=== PATIENT | male | born 1940 | race Caucasian/White ===

== ENCOUNTER 2017-08-02 17:57 | Inpatient (IN) | payer OTHER ==
[~2017-08-02] VITALS: Ht 167.6 cm; Wt 48.8 kg
[2017-08-02] MEDS ORDERED: ATORVASTATIN CA40 M1 PO (19:51)
[2017-08-02] MEDS ORDERED: PHOSLO667 MG PO (19:51)
[2017-08-02] MEDS ORDERED: NOR5 PO (19:51)
[2017-08-02] MEDS ORDERED: ASPIR 8181 MG PO (19:51)
[2017-08-02] MEDS ORDERED: LEVOXYL0.075 MG PO (19:52)
[2017-08-02] MEDS ORDERED: CLOPIDOGREL75 M1 PO (19:52)
[2017-08-02] MEDS ORDERED: NEU300 PO (19:52)
[2017-08-02] MEDS ORDERED: LOSARTAN POTASS25 M1 PO (19:53)
[2017-08-02] MEDS ORDERED: METOPROLOL TART25 M1 PO (19:54)
[2017-08-02 20:27] LABS: BASOPHIL % 0.9 % (0-2); PLATELET COUNT 297 x10^3mcL (130-400)
[2017-08-02 20:28] LABS: RED CELL DISTRIBUTION WIDTH 22.4 % (11.5-14.5)
[2017-08-02 20:34] LABS: ALKALINE PHOSPHATASE 94 U/L (46-116); ALT/SGPT 40 U/L (16-63); AST/SGOT 35 U/L (15-37); BILIRUBIN TOTAL 0.3 mg/dL (0.20-1.00); CALCIUM 9.1 mg/dL (8.5-10.1); CARBON DIOXIDE 27.6 mmol/L (21-32); CHLORIDE SERUM 100 mmol/L (98-107); CHOLESTEROL 165 mg/dL (<200); CREATININE SERUM 3.7 mg/dL (0.7-1.3); GLUCOSE SERUM 103 mg/dL (74-106); PHOSPHOROUS 5.6 mg/dL (2.5-4.9); SODIUM SERUM 140 mmol/L (136-145); URIC ACID 2.9 mg/dL (3.5-7.2)
[2017-08-02 20:35] LABS: ALBUMIN 2.9 g/dL (3.4-5.0); HDL CHOLESTEROL 96 mg/dL (40-60); TOTAL PROTEIN, SERUM 8.3 g/dL (6.4-8.2)
[2017-08-02 20:37] LABS: POTASSIUM SERUM 5.6 mmol/L (3.5-5.1)
[2017-08-02 21:06] LABS: rbc morphology (normal/abnorm) ABNORMAL (NORMAL)
[2017-08-02 21:07] LABS: acanthocyte (spur cell) 1+; ovalocyte/elliptocyte 1+
[2017-08-02] MEDS ORDERED: REM15 PO (21:24)
[2017-08-02 21:29] VITALS: BP 127/73
[2017-08-02 22:14] LABS: RED BLOOD CELLS 4.04 M/mm3 (4.52-5.90)
[2017-08-02 22:17] LABS: CHOLESTEROL/HDL RATIO 1.8; MAGNESIUM 2.3 mg/dL (1.8-2.4)
[2017-08-02 22:24] LABS: FREE T4 0.87 ng/dL (0.76-1.46); T4(THYROXINE) 5.8 ug/dL (4.7-13.3)
[2017-08-02 22:28] LABS: T3 TOTAL 0.54 ng/mL
[2017-08-02 22:44] LABS: IRON 19 ug/dL (65-170); TOTAL IRON BINDING CAPACITY 149 ug/dL (250-450)
[2017-08-03 02:59] LABS: UA SPECIFIC GRAVITY 1.015 (1.005-1.035); microscopic required? YES; urine erythrocyte 3+ (NEGATIVE)
[2017-08-03 06:15] LABS: PLATELET COUNT 293 x10^3mcL (130-400)
[2017-08-03 06:23] LABS: RED CELL DISTRIBUTION WIDTH 22.1 % (11.5-14.5)
[2017-08-03 06:27] LABS: CALCIUM 9.4 mg/dL (8.5-10.1); CARBON DIOXIDE 28.5 mmol/L (21-32); CHLORIDE SERUM 105 mmol/L (98-107); CREATININE SERUM 3.9 mg/dL (0.7-1.3); GLUCOSE SERUM 91 mg/dL (74-106); MAGNESIUM 2.5 mg/dL (1.8-2.4); PHOSPHOROUS 6.7 mg/dL (2.5-4.9); SODIUM SERUM 145 mmol/L (136-145)
[2017-08-03 06:46] LABS: POTASSIUM SERUM 6.6 mmol/L (3.5-5.1)
[2017-08-03 07:16] VITALS: BP 157/66
[2017-08-03 08:28] LABS: rbc morphology (normal/abnorm) ABNORMAL (NORMAL)
[2017-08-03 08:29] LABS: ovalocyte/elliptocyte 1+; target cell (codocyte) 1+
[2017-08-03 08:44] LABS: BAND NEUTROPHIL 1 % (0-10); MONOCYTE 15 % (0-7); SEGMENTED NEUTROPHILS 52 % (37-75)
[2017-08-03 11:03] VITALS: BP 160/60
[2017-08-03 14:18] VITALS: BP 129/69
[2017-08-03 17:17] VITALS: Ht 167.6 cm; Wt 48.8 kg
[2017-08-03 17:31] LABS: BASOPHIL % 0.9 % (0-2); PLATELET COUNT 287 x10^3mcL (130-400)
[2017-08-03 17:57] LABS: CALCIUM 8.2 mg/dL (8.5-10.1); CARBON DIOXIDE 34.8 mmol/L (21-32); CHLORIDE SERUM 100 mmol/L (98-107); CREATININE SERUM 2.1 mg/dL (0.7-1.3); GLUCOSE SERUM 104 mg/dL (74-106); POTASSIUM SERUM 3.9 mmol/L (3.5-5.1); SODIUM SERUM 141 mmol/L (136-145)
[2017-08-03 18:13] VITALS: BP 170/61
[2017-08-03 22:01] VITALS: BP 151/54
[2017-08-04 05:54] LABS: BASOPHIL % 0.2 % (0-2); PLATELET COUNT 329 x10^3mcL (130-400)
[2017-08-04 06:03] VITALS: BP 160/70
[2017-08-04 06:18] LABS: CALCIUM 9.2 mg/dL (8.5-10.1); CARBON DIOXIDE 31.4 mmol/L (21-32); CHLORIDE SERUM 96 mmol/L (98-107); CREATININE SERUM 2.8 mg/dL (0.7-1.3); GLUCOSE SERUM 88 mg/dL (74-106); MAGNESIUM 1.9 mg/dL (1.8-2.4); PHOSPHOROUS 5.9 mg/dL (2.5-4.9); POTASSIUM SERUM 3.5 mmol/L (3.5-5.1); SODIUM SERUM 139 mmol/L (136-145)
[2017-08-04 06:43] LABS: RED CELL DISTRIBUTION WIDTH 22.6 % (11.5-14.5); rbc morphology (normal/abnorm) ABNORMAL (NORMAL)
[2017-08-04 09:54] VITALS: BP 105/55
[2017-08-04 13:20] VITALS: BP 142/61
[2017-08-04 18:16] VITALS: BP 154/63
[2017-08-04 20:10] VITALS: BP 143/59
[2017-08-05 06:18] VITALS: BP 168/60
[2017-08-05 07:10] LABS: BASOPHIL % 0.6 % (0-2); PLATELET COUNT 292 x10^3mcL (130-400)
[2017-08-05 07:22] LABS: CALCIUM 9.1 mg/dL (8.5-10.1); CARBON DIOXIDE 30.3 mmol/L (21-32); CHLORIDE SERUM 96 mmol/L (98-107); GLUCOSE SERUM 77 mg/dL (74-106); PHOSPHOROUS 7.5 mg/dL (2.5-4.9); POTASSIUM SERUM 4.6 mmol/L (3.5-5.1); SODIUM SERUM 140 mmol/L (136-145)
[2017-08-05 07:29] LABS: RED CELL DISTRIBUTION WIDTH 21.1 % (11.5-14.5)
[2017-08-05 07:48] LABS: CREATININE SERUM 4.4 mg/dL (0.7-1.3)
[2017-08-05 10:00] VITALS: BP 169/47
[2017-08-05 14:07] VITALS: BP 172/55
[2017-08-05 18:11] VITALS: BP 191/71
[2017-08-05 21:17] VITALS: BP 109/65
[2017-08-06 05:32] VITALS: BP 126/51
[2017-08-06 07:19] LABS: BASOPHIL % 0.6 % (0-2); PLATELET COUNT 245 x10^3mcL (130-400)
[2017-08-06 07:31] LABS: RED CELL DISTRIBUTION WIDTH 20.5 % (11.5-14.5)
[2017-08-06 07:35] LABS: CALCIUM 8.3 mg/dL (8.5-10.1); CHLORIDE SERUM 100 mmol/L (98-107); CREATININE SERUM 2.7 mg/dL (0.7-1.3); GLUCOSE SERUM 78 mg/dL (74-106); MAGNESIUM 1.8 mg/dL (1.8-2.4); PHOSPHOROUS 5.6 mg/dL (2.5-4.9); POTASSIUM SERUM 3.5 mmol/L (3.5-5.1); SODIUM SERUM 141 mmol/L (136-145)
[2017-08-06 09:40] VITALS: BP 115/61
[2017-08-06 13:23] VITALS: BP 124/62
[2017-08-06 16:13] VITALS: BP 118/95
[2017-08-06 22:33] VITALS: BP 151/51
[2017-08-07 06:34] VITALS: BP 132/43
[2017-08-07 10:53] LABS: BASOPHIL % 0.5 % (0-2); PLATELET COUNT 262 x10^3mcL (130-400)
[2017-08-07 10:55] LABS: RED CELL DISTRIBUTION WIDTH 20.9 % (11.5-14.5)
[2017-08-07 10:56] LABS: rbc morphology (normal/abnorm) ABNORMAL (NORMAL)
[2017-08-07 11:14] LABS: CALCIUM 8.4 mg/dL (8.5-10.1); CARBON DIOXIDE 28.4 mmol/L (21-32); CHLORIDE SERUM 99 mmol/L (98-107); GLUCOSE SERUM 79 mg/dL (74-106); MAGNESIUM 1.9 mg/dL (1.8-2.4); PHOSPHOROUS 7.1 mg/dL (2.5-4.9); POTASSIUM SERUM 4.3 mmol/L (3.5-5.1); SODIUM SERUM 137 mmol/L (136-145)
[2017-08-07 11:15] LABS: CREATININE SERUM 4.4 mg/dL (0.7-1.3)
[2017-08-07 13:08] VITALS: BP 145/41
[2017-08-07] MEDS ORDERED: FLO4 PO (17:25)
[2017-08-07] MEDS ORDERED: KEFLEX750 M1 PO (17:27)
[2017-08-07] MEDS ORDERED: BD LACTINEX1.4 MG PO (17:27)
[2017-08-07 18:00] VITALS: BP 145/41
== END 2017-08-07 19:00 | disposition home or self-care (01) | DRG 689 ==
LOC: ED 17:57 → DU 20:27
PROVIDERS: Emergency Medicine; Family Medicine; Student in an Organized Health Care Education/Training Program
DX: N39.0 Urinary tract infection, site not specified (principal); N18.6 End stage renal disease; N17.0 Acute kidney failure with tubular necrosis; I12.0 Hypertensive chronic kidney disease with stage 5 chronic kidney disease or end stage renal disease; E11.52 Type 2 diabetes mellitus with diabetic peripheral angiopathy with gangrene; I96 Gangrene, not elsewhere classified; E44.0 Moderate protein-calorie malnutrition; Z68.1 Body mass index [BMI] 19.9 or less, adult; R31.0 Gross hematuria; N13.2 Hydronephrosis with renal and ureteral calculous obstruction; E87.5 Hyperkalemia; E83.39 Other disorders of phosphorus metabolism; E11.22 Type 2 diabetes mellitus with diabetic chronic kidney disease; E11.42 Type 2 diabetes mellitus with diabetic polyneuropathy; I25.10 Atherosclerotic heart disease of native coronary artery without angina pectoris; M62.50 Muscle wasting and atrophy, not elsewhere classified, unspecified site; M20.41 Other hammer toe(s) (acquired), right foot; D64.9 Anemia, unspecified; E03.9 Hypothyroidism, unspecified; Z99.2 Dependence on renal dialysis; Z89.612 Acquired absence of left leg above knee; Z86.73 Personal history of transient ischemic attack (TIA), and cerebral infarction without residual deficits
CPT/HCPCS: 36600; 82962; 83880; 84439; J0610; J0696; J0885-EC; J1815; J1956; J7030; Q0092

== ENCOUNTER 2017-08-25 21:36 | Emergency (ER) | payer OTHER ==
[~2017-08-25 21:36] MED LIST: ASPIR 8181 MG PO; ATORVASTATIN CA40 M1 PO; BD LACTINEX1.4 MG PO; CLOPIDOGREL75 M1 PO; FLO4 PO; KEFLEX750 M1 PO; LEVOXYL0.075 MG PO; LOSARTAN POTASS25 M1 PO; METOPROLOL TART25 M1 PO; NEU300 PO; NOR5 PO; PHOSLO667 MG PO; REM15 PO
[2017-08-25 23:08] LABS: BASOPHIL % 1.9 % (0-2)
[2017-08-25 23:13] LABS: PLATELET COUNT 481 x10^3mcL (130-400); RED CELL DISTRIBUTION WIDTH 21.1 % (11.5-14.5)
[2017-08-25 23:16] LABS: CALCIUM 8.7 mg/dL (8.5-10.1); CARBON DIOXIDE 24.3 mmol/L (21-32); CHLORIDE SERUM 101 mmol/L (98-107); GLUCOSE SERUM 148 mg/dL (74-106); POTASSIUM SERUM 4.9 mmol/L (3.5-5.1); SODIUM SERUM 139 mmol/L (136-145)
[2017-08-25 23:19] LABS: CREATININE SERUM 5.2 mg/dL (0.7-1.3)
[2017-08-25 23:42] LABS: burr cell (echinocyte) 2+; ovalocyte/elliptocyte 2+; rbc morphology (normal/abnorm) ABNORMAL (NORMAL); target cell (codocyte) 1+
[2017-08-26 00:23] LABS: microscopic required? YES; urine erythrocyte 3+ (NEGATIVE)
[2017-08-26 00:44] VITALS: BP 145/65
== END 2017-08-26 00:44 | disposition home or self-care (01) ==
LOC: ED 21:36
PROVIDERS: Emergency Medicine
DX: T83.021A Displacement of indwelling urethral catheter, initial encounter (principal); E11.22 Type 2 diabetes mellitus with diabetic chronic kidney disease; I12.9 Hypertensive chronic kidney disease with stage 1 through stage 4 chronic kidney disease, or unspecified chronic kidney disease; N18.9 Chronic kidney disease, unspecified; Z99.2 Dependence on renal dialysis
CPT/HCPCS: 36415; J3010